=== PATIENT | female | born 1990 | race Hispanic/Latino ===

== ENCOUNTER 2017-05-11 23:26 | Inpatient (IN) | payer MEDICAID ==
[~2017-05-11] VITALS: Ht 160 cm; Wt 104.8 kg
[2017-05-12] MEDS ORDERED: OXYTOCIN-LR 20 UNITS/1000 ML 1,000 ML IV SCH (00:30)
[2017-05-12 00:41] LABS: HEMATOCRIT 36.1 % (36-48); MEAN CORPUSCULAR HEMOGLOBIN 26.7 pg (27.0-33.0); MEAN CORPUSCULAR HGB CONC 32.9 g/dL (32.0-36.0); MEAN CORPUSCULAR VOLUME 80.9 fL (79-99); PLATELET COUNT (AUTO) 243 K/uL (130-400); RED BLOOD CELL COUNT(AUTO) 4.46 MIL/uL (4.00-5.50); RED CELL DISTRIBUTION WIDTH 15.9 % (11.0-15.5); WHITE BLOOD COUNT (AUTO) 12.7 K/uL (4.8-10.8)
[2017-05-12] MEDS: LACTATED RINGERS 1000ML 1,000 ML IV PRN ×2 (00:45→06:35)
[2017-05-12] MEDS ORDERED: OXYTOCIN 10 USP UNITS/ML ONE ×2 (07:23→22:42)
[2017-05-12] MEDS ORDERED: OXYTOCIN 10 USP UNITS/ML 20 UNIT in LACTATED RINGERS 1000ML 1,000 ML IV SCH (07:30)
[2017-05-12] MEDS ORDERED: MEPERIDINE-PF 50 MG/ML SYG IVP SCH (11:45)
[2017-05-12] MEDS ORDERED: PROMETHAZINE HCL 25 MG/ML 1ML AMPULE IM SCH (11:45)
[2017-05-12] MEDS ORDERED: DIPH,PERTUSS(ACELL),TET VAC/PF 0.5 ML VIAL IM PRN (17:30)
[2017-05-12] MEDS ORDERED: LANOLIN 30GM OINTMENT TP PRN (17:30)
[2017-05-12] MEDS ORDERED: WITCH HAZEL 1 PAD TP PRN (17:30)
[2017-05-12] MEDS ORDERED: BENZOCAINE/LANOLIN/ALOE VERA 60 ML AEROSOL TP PRN (17:30)
[2017-05-12] MEDS ORDERED: MEASLES/MUMPS/RUBELLA VACCINE, LIVE 0.5 ML/VIAL SQ PRN (17:30)
[2017-05-12] MEDS ORDERED: ACETAMINOPHEN 325 MG TAB PO PRN (17:30)
[2017-05-12] MEDS: IBUPROFEN 600 MG TABLET PO PRN (19:40)
[2017-05-12] MEDS: DOCUSATE SODIUM 100 MG CAP PO SCH (19:40)
[2017-05-12 21:02] VITALS: BP 116/59
[2017-05-12] MEDS ORDERED: PNV1TABL17 PO (21:18)
[2017-05-12 23:15] VITALS: BP 113/64
[2017-05-12 23:30] VITALS: BP 120/58
[2017-05-13] MEDS ORDERED: MORPHINE SULFATE 10 MG/ML 1ML SYG IM ONE (00:30)
[2017-05-13 03:12] VITALS: BP 94/54
[2017-05-13 05:46] LABS: HEMATOCRIT 24.4 % (36-48); MEAN CORPUSCULAR HEMOGLOBIN 27.7 pg (27.0-33.0); MEAN CORPUSCULAR HGB CONC 34.2 g/dL (32.0-36.0); MEAN CORPUSCULAR VOLUME 81.1 fL (79-99); PLATELET COUNT (AUTO) 212 K/uL (130-400); RED CELL DISTRIBUTION WIDTH 15.8 % (11.0-15.5); WHITE BLOOD COUNT (AUTO) 22.5 K/uL (4.8-10.8)
[2017-05-13] MEDS: IBUPROFEN 600 MG TABLET PO PRN ×2 (06:06→20:09)
[2017-05-13 07:23] LABS: HEPATITIS Bs ANTIGEN SCREEN P Negative (Negative)
[2017-05-13 07:46] VITALS: BP 104/64
[2017-05-13] MEDS: DOCUSATE SODIUM 100 MG CAP PO SCH ×2 (09:44→21:02)
[2017-05-13 11:38] VITALS: BP 103/62
[2017-05-13 15:32] VITALS: BP 106/60
[2017-05-13 19:45] VITALS: BP 114/76
[2017-05-13 23:40] VITALS: BP 115/64
[2017-05-14 03:57] VITALS: BP 118/56
[2017-05-14] MEDS: IBUPROFEN 600 MG TABLET PO PRN (04:40)
[2017-05-14 07:48] VITALS: BP 113/72
[2017-05-14] MEDS: DOCUSATE SODIUM 100 MG CAP PO SCH (08:13)
[2017-05-14 11:29] VITALS: BP 118/68
[2017-05-14] MEDS ORDERED: IBUP-2070 PO (15:18)
[2017-05-14] MEDS ORDERED: IRON-10 PO (15:19)
[2017-05-14 16:04] VITALS: BP 136/61
== END 2017-05-14 16:05 | disposition home or self-care (01) | DRG 560 ==
LOC: EDH 23:26 → OBSVTOIN 23:35 → LDH 23:35 → WSH 05-12 23:25
PROVIDERS: ADMIT Obstetrics & Gynecology; ATTEND Obstetrics & Gynecology
PROC: 10E0XZZ Delivery of Products of Conception, External Approach (ICD-10-PCS; principal; 2017-05-12)
PROC: 0W8NXZZ Division of Female Perineum, External Approach (ICD-10-PCS; 2017-05-12)
PROC: 3E0234Z Introduction of Serum, Toxoid and Vaccine into Muscle, Percutaneous Approach (ICD-10-PCS; 2017-05-13)
DX: O42.013 Preterm premature rupture of membranes, onset of labor within 24 hours of rupture, third trimester (principal); D62 Acute posthemorrhagic anemia; O69.1XX0 Labor and delivery complicated by cord around neck, with compression, not applicable or unspecified; Z23 Encounter for immunization; Z37.0 Single live birth; Z3A.36 36 weeks gestation of pregnancy; O90.89 Other complications of the puerperium, not elsewhere classified
CPT/HCPCS: 36415; 85027; 86592; 86850; 86900; 86901; 87340; 88307; 90715; A4351; J2175; J2550; J2590; J7120

== ENCOUNTER 2017-08-22 16:22 | Emergency (ER) | payer MEDICAID, OTHER ==
[~2017-08-22 16:22] MED LIST: IBUP-2070 PO; IRON-10 PO; PNV1TABL17 PO
[2017-08-22 17:24] LABS: BASOPHILS % (AUTO) 0.2 % (0.0-5.0); EOSINOPHILS % (AUTO) 1.3 % (0.0-8.0); HEMATOCRIT 35.8 % (36-48); LYMPHOCYTES % (AUTO) 15.3 % (21.0-51.0); MEAN CORPUSCULAR HGB CONC 33.3 g/dL (32.0-36.0); MONOCYTES % (AUTO) 7.3 % (3.0-13.0); NEUTROPHILS % (AUTO) 75.9 % (40.0-77.0); NUCLEATED RED BLOOD CELLS 0.1 % (0.0-0.19); PLATELET COUNT (AUTO) 403 K/uL (130-400); RED BLOOD CELL COUNT(AUTO) 4.98 MIL/uL (4.00-5.50); RED CELL DISTRIBUTION WIDTH 15.9 % (11.0-15.5); WHITE BLOOD COUNT (AUTO) 9.3 K/uL (4.8-10.8)
[2017-08-22 17:28] LABS: APPEARANCE,URINE Clear (CLEAR); BILIRUBIN,URINE Negative (NEGATIVE); COLOR,URINE Yellow (YELLOW); GLUCOSE, URINE (UA) Negative (NEGATIVE); KETONES,URINE Negative (NEGATIVE); LEUKOCYTE ESTERASE ,URINE Negative (NEGATIVE); NITRATE,URINE Negative (NEGATIVE); OCCULT BLOOD,URINE Negative (NEGATIVE); PROTEIN,URINE Negative (NEGATIVE)
[2017-08-22 17:35] LABS: HCG,QUAL RESULT NEGATIVE (NEGATIVE)
[2017-08-22 17:37] LABS: CREATININE 0.8 mg/dL (0.5-1.5); POTASSIUM 3.4 mmol/L (3.5-5.1)
[2017-08-22 17:42] LABS: ALBUMIN 3.3 g/dL (3.5-5.0); BILIRUBIN,TOTAL 0.2 mg/dL (0.2-1.0); TOTAL PROTEIN, SERUM 7.9 g/dL (6.0-8.3)
== END 2017-08-22 18:05 | disposition home or self-care (01) ==
LOC: EDH 16:22
DX: K80.50 Calculus of bile duct without cholangitis or cholecystitis without obstruction (principal)
CPT/HCPCS: 36415; 76705; 80053; 81003; 81025; 83690; 85025

== ENCOUNTER 2020-05-02 04:20 | Emergency (ER) | payer MEDICAID ==
[2020-05-02] MEDS ORDERED: FAMOTIDINE/PF 20 MG/2 ML VIAL IV ONE (04:59)
[2020-05-02] MEDS ORDERED: ONDANSETRON HCL 4 MG/2 ML VIAL ONE (04:59)
[2020-05-02] MEDS ORDERED: PANTOPRAZOLE 40 MG/VIAL ONE (04:59)
[2020-05-02 05:03] LABS: APPEARANCE,URINE Cloudy (CLEAR); BILIRUBIN,URINE Negative (NEGATIVE); COLOR,URINE Yellow (YELLOW); GLUCOSE, URINE (UA) Negative (NEGATIVE); KETONES,URINE Negative (NEGATIVE); LEUKOCYTE ESTERASE ,URINE Large (NEGATIVE); NITRATE,URINE Negative (NEGATIVE); OCCULT BLOOD,URINE Small (NEGATIVE); PROTEIN,URINE Negative (NEGATIVE)
[2020-05-02 05:05] LABS: HCG,QUAL RESULT NEGATIVE (NEGATIVE)
[2020-05-02 05:13] LABS: BASOPHILS % (AUTO) 0.4 % (0.0-5.0); EOSINOPHILS % (AUTO) 0.2 % (0.0-8.0); HEMATOCRIT 35.7 % (36-48); LYMPHOCYTES % (AUTO) 7.5 % (21.0-51.0); MEAN CORPUSCULAR HGB CONC 29.4 g/dL (32.0-36.0); MEAN CORPUSCULAR VOLUME 74.8 fL (79-99); MONOCYTES % (AUTO) 2.6 % (3.0-13.0); NEUTROPHILS % (AUTO) 88.3 % (40.0-77.0); PLATELET COUNT (AUTO) 463 K/uL (130-400); RED BLOOD CELL COUNT(AUTO) 4.77 MIL/uL (4.00-5.50); RED CELL DISTRIBUTION WIDTH 15.2 % (11.0-15.5); WHITE BLOOD COUNT (AUTO) 17.1 K/uL (4.8-10.8)
[2020-05-02 05:16] LABS: BACTERIA,URINE Few /HPF (None Seen); RBC,URINE 0-1 /HPF (0-1)
[2020-05-02 05:36] LABS: CREATININE 0.9 mg/dL (0.5-1.5); POTASSIUM 3.9 mmol/L (3.5-5.1)
[2020-05-02 05:40] LABS: ALBUMIN 3.6 g/dL (3.5-5.0); BILIRUBIN,TOTAL 0.3 mg/dL (0.2-1.0); TOTAL PROTEIN, SERUM 7.9 g/dL (6.0-8.3)
[2020-05-02] MEDS ORDERED: CEFTRIAXONE SODIUM 1 GM ONE (05:49)
[2020-05-02] MEDS ORDERED: SODIUM CHLORIDE 0.9% 50 ML IV ONE (05:50)
[2020-05-02] MEDS ORDERED: KETOROLAC TROMETHAMINE 30MG/ML ONE (06:29)
[2020-05-02] MEDS ORDERED: METOCLOPRAMIDE 10 MG/2 ML VIAL ONE (06:29)
== END 2020-05-02 07:59 | disposition home or self-care (01) ==
LOC: EDH 04:20
DX: K29.00 Acute gastritis without bleeding (principal); K80.20 Calculus of gallbladder without cholecystitis without obstruction
CPT/HCPCS: 36415; 76705; 80053; 81001; 81025; 83690; 85025; 87088; 93005; 96361; 96365; 96366; 96375; 99285; C9113; J0696; J1885; J2405; J2765; J3490

== ENCOUNTER 2020-06-21 14:21 | Emergency (ER) | payer MEDICAID | END 2020-06-21 15:43 | disposition home or self-care (01) | LOC: EDH 14:21 | DX: T81.49XA Infection following a procedure, other surgical site, initial encounter (principal); Z90.49 Acquired absence of other specified parts of digestive tract | CPT/HCPCS: 87070; 87076; 87077; 87186 ==

== ENCOUNTER 2022-08-30 17:46 | Observation (INO) | payer MEDICAID, OTHER ==
[~2022-08-30] VITALS: Ht 160 cm; Wt 105.7 kg
[2022-08-30 18:30] VITALS: BP 116/56
[2022-08-30 18:48] LABS: APPEARANCE,URINE CLEAR (CLEAR); BILIRUBIN,URINE NEGATIVE (NEGATIVE); COLOR,URINE LIGHT-YELLOW (YELLOW); GLUCOSE, URINE (UA) NEGATIVE (NEGATIVE); KETONES,URINE NEGATIVE (NEGATIVE); LEUKOCYTE ESTERASE ,URINE NEGATIVE Leu/uL (NEGATIVE); NITRATE,URINE NEGATIVE (NEGATIVE); OCCULT BLOOD,URINE NEGATIVE (NEGATIVE); PROTEIN,URINE NEGATIVE (NEGATIVE); UROBILINOGEN,URINE 0.2 mg/dL (0.2-1.0)
[2022-08-30 18:49] LABS: BACTERIA,URINE FEW /HPF (None Seen); MUCUS,URINE RARE LPF (None Seen); OTHER CASTS, URINE 1 /LPF (None Seen); RBC,URINE 0-1 /HPF (0-1); SQUAMOUS EPITHELIAL CELL,UR FEW /HPF (0-2)
[2022-08-30] MEDS: LACTATED RINGERS 1000ML 1,000 ML IV PRN ×2 (19:52→20:57)
[2022-08-30 20:02] LABS: AMPHET/METH SCREEN,URINE NEGATIVE (NEGATIVE); BARBITURATE SCREEN, URINE NEGATIVE (NEGATIVE); BENZODIAZEPINES SCREEN,URINE NEGATIVE (NEGATIVE); CANNABINOID SCREEN,URINE NEGATIVE (NEGATIVE); COCAINE SCREEN,URINE NEGATIVE (NEGATIVE); OPIATE SCREEN,URINE NEGATIVE (NEGATIVE); PHENCYCLIDINE SCREEN,URINE NEGATIVE (NEGATIVE)
[2022-08-30] MEDS: TERBUTALINE SULFATE VIAL 1MG/ML SQ SCH ×2 (20:17→20:50)
[2022-08-30] MEDS ORDERED: LACTATED RINGERS 1000ML 1,000 ML IV SCH (20:30)
== END 2022-08-30 23:17 | disposition home or self-care (01) ==
LOC: EDH 17:46 → LDH 17:47 → EDH 18:05
PROVIDERS: ADMIT Obstetrics & Gynecology; ATTEND Obstetrics & Gynecology
DX: O26.893 Other specified pregnancy related conditions, third trimester (principal); R10.9 Unspecified abdominal pain; O99.891 Other specified diseases and conditions complicating pregnancy; M54.9 Dorsalgia, unspecified; Z3A.30 30 weeks gestation of pregnancy
CPT/HCPCS: 96360; 96361; 96372; 80305; 81001; G0378 ×5; J7120 ×3; J3105